=== PATIENT | female | born 1960 | race Caucasian/White ===

== ENCOUNTER 2019-09-06 10:16 | Emergency (ER) | payer BC ==
[2019-09-06 10:27] VITALS: BP 149/85; PULSE 68; TEMP 97.8; BMI 29.5
[2019-09-06] MEDS ORDERED: KETOROLAC TROMETHAMINE 30 MG/1 ML VIAL IVPUSH ONE (11:00)
[2019-09-06] MEDS ORDERED: ONDANSETRON 4 MG/2 ML VIAL IVPUSH ONE (11:00)
[2019-09-06] MEDS ORDERED: SODIUM CHLORIDE 1,000 ML IV STA (11:00)
[2019-09-06] MEDS ORDERED: PANTOPRAZOLE SODIUM 40 MG VIAL IVPUSH ONE (11:00)
--- NOTE | 2019-09-06 11:32 | PDOC ---
History of Present Illness - General Chief Complaint: Pain Stated Complaint: ABD PAIN Time Seen by Provider: 09/06/19 10:48 History Source: Patient Exam Limitations: No Limitations - History of Present Illness Initial Comments: 09/06/19 13:06 59-year-old female presents to ED with complaints of intermittent nausea for the past week associated upper abdominal pain rating to her right chest. Patient denies dizziness, chest pain or shortness of breath. Patient also denies fever or chills. Patient does state has history of GERD and takes Protonix daily prescribed by her primary care physician. Patient also complaining of mild upper abdominal cramping without vomiting, diarrhea, abdominal distention, or rash. Is this a multiple visit Asthma Patient?: No Timing/Duration: intermittent Severity: mild Associated Symptoms: reports: nausea/vomiting Past History - Travel Traveled outside of the country in the last 30 days: No Close contact w/someone who was outside of country & ill: No - Past Medical History Allergies/Adverse Reactions: Allergies Allergy/AdvReac Type Severity Reaction Status Date / Time amoxicillin [From Augmentin] Allergy Verified 09/06/19 10:22 clavulanic acid Allergy Verified 09/06/19 10:22 [From Augmentin] Sulfa (Sulfonamide Allergy Verified 09/06/19 10:22 Antibiotics) Home Medications: Ambulatory Orders Atenolol [Tenormin -] 50 mg PO DAILY 09/06/19 Hydrochlorothiazide 25 mg PO DAILY 09/06/19 Omeprazole 40 mg PO ASDIR 09/06/19 COPD: No GI Disorders: Yes HTN: Yes - Surgical History Abdominal Surgery: Yes (laproscopies) - Psycho Social/Smoking Cessation Hx Smoking History: Never smoked Hx Alcohol Use: No Drug/Substance Use Hx: No Patient Lives Alone: No Lives with/in: spouse/SO Review of Systems - Review of Systems Able to Perform ROS?: No Is the patient limited Haitian proficient: No Constitutional: No: Symptoms Reported HEENTM: No: Symptoms Reported Respiratory: No: Symptoms reported Cardiac (ROS): Yes: Chest Pain (right sided) ABD/GI: Yes: Nausea, Abdominal cramping : No: Symptoms Reported Musculoskeletal: No: Symptoms Reported Integumentary: No: Symptoms Reported Neurological: No: Symptoms reported *Physical Exam - Vital Signs Last Vital Signs Temp Pulse Resp BP Pulse Ox 97.8 F 68 18 149/85 100 09/06/19 10:25 09/06/19 10:25 09/06/19 10:25 09/06/19 10:25 09/06/19 10:25 - Physical Exam General Appearance: Yes: Nourished, Appropriately Dressed. No: Apparent Distress HEENT: negative: Pale Conjunctivae Neck: positive: Supple Respiratory/Chest: positive: Lungs Clear, Normal Breath Sounds. negative: Respiratory Distress, Accessory Muscle Use Cardiovascular: positive: Regular Rhythm, Regular Rate. negative: Murmur Gastrointestinal/Abdominal: positive: Normal Bowel Sounds, Soft. negative: Distended, Tenderness Integumentary: positive: Normal Color, Warm, Moist Neurologic: positive: Motor Strength 5/5 (ambulatory) ED Treatment Course - LABORATORY CBC & Chemistry Diagram: 09/06/19 11:43 09/06/19 11:43 Medical Decision Making - Medical Decision Making 09/06/19 13:24 Chief complaint: Intermittent nausea with upper abdominal pain radiating to her right chest. Patient states that this began about a week ago. Patient has no other associated symptoms. Patient with history of GERD but states takes Protonix daily prescribed her PCP. Exam: Patient with normal vital signs normal physical exam plan: Labs, urine, Protonix, Toradol and Zofran with IV fluids 09/06/19 14:26 Laboratory Tests 09/06/19 09/06/19 09/06/19 11:43 11:43 11:43 WBC 5.8 Hgb 15.0 Hct 44.8 Absolute Neuts (auto) 4.1 Sodium 139 Potassium 4.0 Chloride 107 Carbon Dioxide 27 Anion Gap 6 L BUN 15.0 Creatinine 0.7 Est GFR (CKD-EPI)AfAm 111.47 Est GFR (CKD-EPI)NonAf 96.18 Random Glucose 93 Calcium 8.6 Magnesium 2.4 Total Bilirubin 0.4 AST 46 H ALT 55 Alkaline Phosphatase 76 Creatine Kinase 100 Troponin I < 0.02 Total Protein 7.9 Albumin 3.8 Lipase 118 Urine pH >= 9.0 H Urine Blood Negative Urine Nitrite Negative Urine Bilirubin Negative Urine Urobilinogen 1.0 Ur Leukocyte Esterase Trace Urine WBC (Auto) 6 Urine RBC (Auto) 2 Urine Casts (Auto) 1 U Epithel Cells (Auto) 2.3 Urine Bacteria (Auto) 529.1 Patient states feeling better. Patient recommended to follow-up with GI continue to take her Protonix and return to ED if symptoms worsen Discharge - Discharge Information Problems reviewed: Yes Clinical Impression/Diagnosis: Epigastric abdominal pain Condition: Improved Disposition: HOME - Admission No - Follow up/Referral Referrals: Shabbir Sam MD [Staff Physician] - - Patient Discharge Instructions Patient Printed Discharge Instructions: DI for Epigastric Pain Additional Instructions: Please continue take please continue to take your Protonix as prescribed. I do recommend you follow-up with a manager intel in regards to today's symptoms. I have given you referral to Dr. Sam so please call your earliest convenience for an appointment. If your symptoms worsen obviously return to the ED . - Post Discharge Activity Work/Back to School Note: Back to Work
[2019-09-06 12:07] LABS: BASO % 0.4 % (0-2.0); HEMATOCRIT 44.8 % (32.4-45.2); LYMPH % 20.6 % (8-40); MCH 30.2 pg (25.7-33.7); MCHC 33.5 g/dl (32.0-36.0); MONO % 7.2 % (3.8-10.2); NEUT % 70.8 % (42.8-82.8); PLATELET COUNT 172 K/MM3 (134-434); RBC 4.98 M/mm3 (3.60-5.2); WHITE BLOOD COUNT 5.8 K/mm3 (4.0-10.0)
[2019-09-06 12:09] LABS: EPI CELLS 2.3 /HPF (0-5/HPF); HYALINE CASTS 1 /lpf (0-8); PH,URINE >= 9.0 (5.0-8.0); URINE APPEARANCE CLEAR; URINE BACTERIA 529.1 /hpf (NEGATIVE); URINE BILIRUBIN NEGATIVE (NEGATIVE); URINE COLOR YELLOW; URINE GLUCOSE (UA) NEGATIVE (NEGATIVE); URINE KETONE NEGATIVE (NEGATIVE); URINE LEUK ESTERASE TRACE (NEGATIVE); URINE NITRITE NEGATIVE (NEGATIVE); URINE PROTEIN NEGATIVE (NEGATIVE); URINE RBC 2 /hpf (0-4); URINE WBC 6 /hpf (0-5)
[2019-09-06] MEDS ORDERED: PANTOPRAZOLE SODIUM 40 MG/100 ML BAG IVPB ONE (12:24)
[2019-09-06] MEDS ORDERED: ONDANSETRON 4 MG/2 ML VIAL ONE ×2 (12:24→12:27)
[2019-09-06] MEDS ORDERED: KETOROLAC TROMETHAMINE 30 MG/1 ML VIAL ONE (12:24)
[2019-09-06 12:51] LABS: ALBUMIN 3.8 g/dl (3.4-5.0); ALK PHOS 76 U/L (45-117); ANION GAP 6 MMOL/L (8-16); BILIRUBIN,TOTAL 0.4 mg/dL (0.2-1); CALCIUM 8.6 mg/dL (8.5-10.1); CHLORIDE 107 mmol/L (98-107); CO2 27 mmol/L (21-32); CREATININE 0.7 mg/dL (0.55-1.3); GLUCOSE,RANDOM 93 mg/dL (74-106); LIPASE 118 U/L (73-393); MAGNESIUM 2.4 mg/dL (1.8-2.4); SGOT/AST 46 U/L (15-37); SGPT/ALT 55 U/L (13-61); SODIUM 139 mmol/L (136-145); TOT PROT 7.9 g/dl (6.4-8.2)
--- NOTE | 2019-09-06 16:12 | EKG ---
Test Reason : Blood Pressure : / mmHG Vent. Rate : 067 BPM Atrial Rate : 067 BPM P-R Int : 150 ms QRS Dur : 078 ms QT Int : 420 ms P-R-T Axes : 040 045 048 degrees QTc Int : 443 ms POOR DATA QUALITY, INTERPRETATION MAY BE ADVERSELY AFFECTED NORMAL SINUS RHYTHM NORMAL ECG NO PREVIOUS ECGS AVAILABLE Confirmed by CALLY SHEPHERD MD ([id number]) on 09/06/2019 4:11:47 PM Referred By: Confirmed By:CALLY SHEPHERD MD
== END 2019-09-06 14:00 | disposition home or self-care (01) ==
LOC: JER 10:16
PROC: 3E0337Z Introduction of Electrolytic and Water Balance Substance into Peripheral Vein, Percutaneous Approach (ICD-10-PCS; principal; 2019-09-06)
PROC: 3E033GC Introduction of Other Therapeutic Substance into Peripheral Vein, Percutaneous Approach (ICD-10-PCS; 2019-09-06)
PROC: 3E033GC Introduction of Other Therapeutic Substance into Peripheral Vein, Percutaneous Approach (ICD-10-PCS; 2019-09-06)
PROC: 3E0333Z Introduction of Anti-inflammatory into Peripheral Vein, Percutaneous Approach (ICD-10-PCS; 2019-09-06)
DX: K21.9 Gastro-esophageal reflux disease without esophagitis (principal); R10.10 Upper abdominal pain, unspecified; I10 Essential (primary) hypertension
CPT/HCPCS: 36415; 80053; 81003; 82550; 83690; 83735; 84484; 85025; 87086; 87186; 93005; 93010; 99284-25; J7030